=== PATIENT | male | born 1950 | race Caucasian/White ===

== ENCOUNTER 2020-03-16 06:44 | Observation (INO) ==
[~2020-03-16 06:44] MED LIST: Buffered Lidocaine 1% SYRIN 1 ml INTRADERM ONE; Lactated Ringers 1000 ml BAG 1,000 ML IV SCH; Sodium Citrate/Citric Acid LIQ 15 ML UDC PO ONE
[2020-03-16] MEDS ORDERED: Sterile Water for Inj 10 ML ONE (07:03)
[2020-03-16] MEDS ORDERED: Midazolam 2 mg/2 ml VIAL 1 mg/ml 2 ml VIAL (2 mg) ONE (07:03)
[2020-03-16] MEDS ORDERED: EPHEDrine (Pressors) 50 MG/ML VIAL ONE (07:03)
[2020-03-16] MEDS ORDERED: Bupivacaine 0.5% SDV PF 30ML VIAL ONE (07:04)
[2020-03-16] MEDS ORDERED: Phenylephrine IV 10 MG/ML 1 ml VIAL ONE ×2 (07:04→07:11)
[2020-03-16] MEDS ORDERED: Phenylephrine 40 mcg/mL 10mL (400mcg) SYRINGE ONE (07:04)
[2020-03-16] MEDS ORDERED: Lidocaine 2% PF 5 ML VIAL ONE (07:04)
[2020-03-16] MEDS ORDERED: Buffered Lidocaine 1% SYRIN 1 ml INTRADERM ONE (07:16)
[2020-03-16] MEDS ORDERED: ceFAZolin 2 GM PREMIX 2 GM/50 ML BAG ONE (07:16)
[2020-03-16] MEDS ORDERED: Sodium Citrate/Citric Acid LIQ 15 ML UDC ONE (07:16)
[2020-03-16] MEDS ORDERED: Famotidine IV 10 MG/ML 2 ml VIAL (20 mg) IV SLOW PU ONE (07:40)
[2020-03-16] MEDS ORDERED: Famotidine IV 10 MG/ML 2 ml VIAL (20 mg) ONE (07:51)
[2020-03-16] MEDS ORDERED: Dexamethasone IV 4 MG/ML VIAL 1 ml VIAL ONE ×2 (08:04→08:05)
[2020-03-16] MEDS ORDERED: ROPIVACAINE 5 MG/ML 30 ML BTL (0.5%) ONE (08:06)
[2020-03-16] MEDS ORDERED: Lidocaine 1% MPF 5 ML VIAL ONE (08:06)
[2020-03-16] MEDS ORDERED: HYDROmorphone 1 MG/1 ML SYRINGE IV PRN (09:58)
[2020-03-16] MEDS ORDERED: fentaNYL 100 mcg/2 ml 50 MCG/ML VIAL IV PRN (09:58)
[2020-03-16] MEDS ORDERED: Naloxone 0.4 mg VIAL 0.4 mg/ml 1 ml VIAL IV PRN (09:58)
[2020-03-16] MEDS ORDERED: Ondansetron 4 mg VIAL 2 MG/ML 2 ml VIAL IV PRN ×2 (09:58→11:34)
[2020-03-16] MEDS ORDERED: Magnesium Hydroxide LIQ 30 ML UDC PO PRN (11:34)
[2020-03-16] MEDS ORDERED: Lactulose 30 ml UDC PO PRN (11:34)
[2020-03-16] MEDS ORDERED: diPHENhydraMINE IV 50 MG/ML 1 ml VIAL (BENADRYL) IV PRN (11:34)
[2020-03-16] MEDS ORDERED: diPHENhydraMINE 25 mg TAB PO PRN (11:34)
[2020-03-16] MEDS ORDERED: Morphine 2 MG/ML SYRINGE IV PRN (11:34)
[2020-03-16] MEDS ORDERED: Ondansetron ODT 4 mg TAB 4 MG TAB PO PRN (11:34)
[2020-03-16] MEDS ORDERED: Ondansetron 4 mg VIAL 2 MG/ML 2 ml VIAL ONE (12:36)
[2020-03-16] MEDS: Lactated Ringers 1000 ml BAG 1,000 ML IV SCH (13:30)
[2020-03-16] MEDS: ceFAZolin 1 GM ADVAN 1 GM in NS 0.9% 50 ML 50 ML IVPB SCH (17:27)
[2020-03-16] MEDS: Magnesium Hydroxide LIQ 30 ML UDC PO SCH (20:35)
[2020-03-17] MEDS: Lactated Ringers 1000 ml BAG 1,000 ML IV SCH (00:02)
[2020-03-17] MEDS: ceFAZolin 1 GM ADVAN 1 GM in NS 0.9% 50 ML 50 ML IVPB SCH ×2 (01:09→08:59)
[2020-03-17] MEDS: oxyCODONE/Acetamin 5/325 mg TAB PO PRN ×2 (05:45→12:06)
[2020-03-17 06:21] LABS: Hematocrit 34 % (42-52); Hemoglobin 11.8 g/dL (14.0-18.0); Mean Platelet Volume 7.8 fL (7.4-10.4); Platelet Count 224 10^3/uL (150-450)
[2020-03-17 06:35] LABS: BUN/Creatinine Ratio 17.8 (8-20); Calcium 8.7 mg/dL (8.6-10.3); EGFR African American 82.4 (>60); EGFR Non-African American 68.1 (>60); Potassium 4.1 mmol/L (3.5-5.0)
[2020-03-17] MEDS ORDERED: Vitamin THERAPEUTIC TAB PO SCH (09:00)
[2020-03-17] MEDS: Magnesium Hydroxide LIQ 30 ML UDC PO SCH (10:15)
[2020-03-17 11:13] VITALS: BP 102/58
== END 2020-03-17 13:40 | disposition home or self-care (01) ==
LOC: OR 06:44 → SSU 06:44
PROVIDERS: ADMIT Orthopaedic Surgery Adult Reconstructive Orthopaedic Surgery; ATTEND Orthopaedic Surgery Adult Reconstructive Orthopaedic Surgery